=== PATIENT | female | born 1960 | race Caucasian/White ===

== ENCOUNTER 2017-12-06 20:34 | Emergency (ER) | payer OTHER, MEDICARE ==
--- NOTE | 2017-12-06 20:52 | PDOC ---
Rapid Medical Evaluation Chief Complaint: Carbon Monoxide Exposure Time Seen by Provider: 12/06/17 20:48 Medical Evaluation: 12/06/17 20:48 57 year old reports carbon monoxide exposure from slow gas leak at home. reports headache, lightheaded and shortness of breath. PE: patient alert playful. PMHX; diabetes, stents. copd. a; CARBON MONOXIDE EXPOSURE p: LABS PATIENT TO THE ER FOR FURTHER MANAGEMENT O f care. Discharge Disposition - Diagnosis Carbon monoxide exposure - Referrals - Patient Instructions - Post Discharge Activity
[2017-12-06 20:54] VITALS: BP 104/65; TEMP 98.5; BMI 41.5
[2017-12-06 21:51] LABS: BASO % 0.4 % (0-2.0); EOS % 0.1 % (0-4.5); HEMATOCRIT 43.1 % (32.4-45.2); HEMOGLOBIN 13.9 GM/dL (10.7-15.3); LYMPH % 8.9 % (8-40); MCH 27.8 pg (25.7-33.7); MCHC 32.2 g/dl (32.0-36.0); MEAN CELL VOLUME 86.3 fl (80-96); MEAN PLT VOLUME 8.9 fl (7.5-11.1); NEUT % 85.6 % (42.8-82.8); PLATELET COUNT 219 K/MM3 (134-434); RDW 15.6 % (11.6-15.6); WHITE BLOOD COUNT 15.5 K/mm3 (4.0-10.0)
[2017-12-06 22:05] LABS: INR 0.96 (0.83-1.09)
[2017-12-06 22:18] LABS: ALBUMIN 3.2 g/dl (3.4-5.0); ANION GAP 10 (8-16); BLOOD UREA NITROGEN 20 mg/dL (7-18); CALCIUM 8.7 mg/dL (8.5-10.1); CHLORIDE 103 mmol/L (98-107); CO2 29 mmol/L (21-32); MAGNESIUM 2.1 mg/dL (1.8-2.4); POTASSIUM 4.5 mmol/L (3.5-5.1); SGOT/AST 14 U/L (15-37); SGPT/ALT 39 U/L (12-78); SODIUM 142 mmol/L (136-145)
[2017-12-06 22:22] LABS: ALK PHOS 73 U/L (45-117); BILIRUBIN,TOTAL 0.2 mg/dL (0.2-1.0); N-TERMINAL BNP 47.91 pg/ml (5-125); TOT PROT 6.4 g/dl (6.4-8.2)
[2017-12-06 22:24] LABS: GLUCOSE,RANDOM 356 mg/dL (74-106)
[2017-12-06 22:33] LABS: ARTERIAL BLD GAS O2 SATURATION 96.8 % (90-98.9); ARTERIAL BLOOD GAS PO2 89.3 mmHg (80-100); ARTERIAL BLOOD GAS pH 7.42 (7.35-7.45); CARBOXYHEMOGLOBIN 1.7 gm% (0.5-2.0)
[2017-12-06 22:35] LABS: ALLENS TEST POSITIVE
[2017-12-06 22:35] LABS: PROTHROMBIN TIME (PATIENT) 10.9 SEC (9.7-13.0)
[2017-12-06] MEDS ORDERED: SODIUM CHLORIDE 0.9% 1000 ML INFUS.BAG IV ONE (22:57)
[2017-12-06 23:14] LABS: ANISOCYTOSIS 1+; MACROCYTOSIS 1+
[2017-12-06 23:15] LABS: PLATELET ESTIMATE ADEQUATE
--- NOTE | 2017-12-06 23:19 | PDOC ---
History of Present Illness <Yolanda Torres - Last Filed: 12/06/17 23:38> - General History Source: Patient Exam Limitations: No Limitations - History of Present Illness Initial Comments: 12/07/17 01:55 The patient is a 57-year-old female, with a past medical history of COPD and diabetes, who presents to the ED for possible CO exposure. The patient was recently discharged from [facility] for COPD exacerbation. Patient was discharged on steroids. Cough improved after medication. She also reports that she quit smoking 2 weeks ago and is now on Chantix. Patient finished her course of Levaquin yesterday. The patient denies any fever, chills, nausea, vomiting, diarrhea, or abdominal pain. She denies any chest pain or palpitations. Allergies: NKA <Piedad Vanegas - Last Filed: 12/07/17 01:59> - General Chief Complaint: Carbon Monoxide Exposure Stated Complaint: R/O CARBON MONOXIDE EXPOSURE Time Seen by Provider: 12/06/17 20:48 Past History - Past Medical History COPD: No Diabetes: Yes - Surgical History Cardiac Surgery: Yes (4 stents) - Suicide/Smoking/Psychosocial Hx Smoking History: Former smoker Have you smoked in the past 12 months: No Information on smoking cessation initiated: No Hx Alcohol Use: No Drug/Substance Use Hx: No Substance Use Type: None <Yolanda Torres - Last Filed: 12/06/17 23:38> <Piedad Vanegas - Last Filed: 12/07/17 01:59> - Past Medical History Allergies/Adverse Reactions: Allergies Allergy/AdvReac Type Severity Reaction Status Date / Time No Known Allergies Allergy Verified 12/06/17 20:51 Review of Systems - Review of Systems Able to Perform ROS?: Yes Comments:: 12/07/17 01:56 GENERAL/CONSTITUTIONAL: No fever or chills. No weakness. HEAD, EYES, EARS, NOSE AND THROAT: No change in vision. No ear pain or discharge. No sore throat. CARDIOVASCULAR: (+)Shortness of breath. No chest pain. RESPIRATORY: No cough, wheezing, or hemoptysis. GASTROINTESTINAL: No nausea, vomiting, diarrhea or constipation. GENITOURINARY: No dysuria, frequency, or change in urination. MUSCULOSKELETAL: No joint or muscle swelling or pain. No neck or back pain. SKIN: No rash NEUROLOGIC: No headache, vertigo, loss of consciousness, or change in strength/ sensation. ENDOCRINE: No increased thirst. No abnormal weight change. HEMATOLOGIC/LYMPHATIC: No anemia, easy bleeding, or history of blood clots. ALLERGIC/IMMUNOLOGIC: No hives or skin allergy. <GuilhermePiedad - Last Filed: 12/07/17 01:59> *Physical Exam - Vital Signs Last Vital Signs Temp Pulse Resp BP Pulse Ox 98.5 F 81 20 104/65 95 12/06/17 20:51 12/06/17 20:51 12/06/17 20:51 12/06/17 20:51 12/06/17 20:51 <Yolanda Torres - Last Filed: 12/06/17 23:38> - Vital Signs Last Vital Signs Temp Pulse Resp BP Pulse Ox 98.5 F 83 18 104/65 97 12/06/17 20:51 12/07/17 00:10 12/07/17 00:10 12/06/17 20:51 12/07/17 00:10 - Physical Exam Comments: 12/07/17 01:57 GENERAL: (+)Obese. Awake, alert, and fully oriented, in no acute distress HEAD: No signs of trauma EYES: PERRLA, EOMI, sclera anicteric, conjunctiva clear ENT: Auricles normal inspection, hearing grossly normal, nares patent, oropharynx clear without exudates. Moist mucosa NECK: Normal ROM, supple, no lymphadenopathy, JVD, or masses LUNGS: Breath sounds equal, clear to auscultation bilaterally. No wheezes, and no crackles HEART: Regular rate and rhythm, normal S1 and S2, no murmurs, rubs or gallops ABDOMEN: Soft, nontender, normoactive bowel sounds. No guarding, no rebound. No masses EXTREMITIES: Normal range of motion, no edema. No clubbing or cyanosis. No cords, erythema, or tenderness NEUROLOGICAL: Cranial nerves II through XII grossly intact. SKIN: Warm, Dry, normal turgor, no rashes or lesions noted. <Piedad Vanegas - Last Filed: 12/07/17 01:59> Heart Score/ECG Review - ECG Intrepretation Comment:: 12/06/17 23:38 sinus at 64, nl axis, nl interval, no acute st/t wave findings <Yolanda Torres - Last Filed: 12/06/17 23:38> ED Treatment Course - LABORATORY CBC & Chemistry Diagram: 12/06/17 21:40 12/06/17 21:40 - ADDITIONAL ORDERS Additional order review: Laboratory Results 12/06/17 12/06/17 12/06/17 21:55 21:40 21:40 PT with INR 10.90 INR 0.96 Puncture Site Right radial ABG pH 7.42 ABG pCO2 at Pt Temp 39.0 ABG pO2 at Pt Temp 89.3 ABG HCO3 24.9 ABG O2 Sat (Measured) 96.8 ABG O2 Content 21.1 ABG Base Excess 1.0 Raymond Test Positive Carboxyhemoglobin 1.7 Methemoglobin 1.6 H O2 Delivery Device N/c Oxygen Flow Rate 2l Sodium 142 Potassium 4.5 Chloride 103 Carbon Dioxide 29 Anion Gap 10 BUN 20 H Creatinine 1.0 Creat Clearance w eGFR 56.95 Random Glucose 356 H* Calcium 8.7 Magnesium 2.1 Total Bilirubin 0.2 AST 14 L ALT 39 Alkaline Phosphatase 73 Troponin I < 0.02 B-Natriuretic Peptide 47.91 Total Protein 6.4 Albumin 3.2 L 12/06/17 21:40 RBC 5.00 MCV 86.3 MCHC 32.2 RDW 15.6 MPV 8.9 Neutrophils % 85.6 H Lymphocytes % 8.9 Monocytes % 5.0 Eosinophils % 0.1 Basophils % 0.4 <Yolanda Torres - Last Filed: 12/06/17 23:38> - LABORATORY CBC & Chemistry Diagram: 12/06/17 21:40 12/06/17 21:40 - ADDITIONAL ORDERS Additional order review: Laboratory Results 12/06/17 12/06/17 12/06/17 21:55 21:40 21:40 PT with INR 10.90 INR 0.96 Puncture Site Right radial ABG pH 7.42 ABG pCO2 at Pt Temp 39.0 ABG pO2 at Pt Temp 89.3 ABG HCO3 24.9 ABG O2 Sat (Measured) 96.8 ABG O2 Content 21.1 ABG Base Excess 1.0 Raymond Test Positive Carboxyhemoglobin 1.7 Methemoglobin 1.6 H O2 Delivery Device N/c Oxygen Flow Rate 2l Sodium 142 Potassium 4.5 Chloride 103 Carbon Dioxide 29 Anion Gap 10 BUN 20 H Creatinine 1.0 Creat Clearance w eGFR 56.95 Random Glucose 356 H* Calcium 8.7 Magnesium 2.1 Total Bilirubin 0.2 AST 14 L ALT 39 Alkaline Phosphatase 73 Troponin I < 0.02 B-Natriuretic Peptide 47.91 Total Protein 6.4 Albumin 3.2 L 12/06/17 21:40 RBC 5.00 MCV 86.3 MCHC 32.2 RDW 15.6 MPV 8.9 Neutrophils % 85.6 H Lymphocytes % 8.9 Monocytes % 5.0 Eosinophils % 0.1 Basophils % 0.4 <Piedad Vanegas - Last Filed: 12/07/17 01:59> Medical Decision Making - Medical Decision Making 12/06/17 23:17 a/p: 57yo female with hx of copd -recently d/c from [facility] for a copd exacerbation -states always has an elevated wbc -still on steroids -denies cp/sob. states she had olivares, which have resolved -denies abd pain. no n/v/d -no complaitns at this time -states she feels anxious that her whole fam was exposed -denies wheezing, finished levaquin yesterday -will obtain labs, ekg, cxr -will monitor and reassess 12/06/17 23:19 cxr clear lungs cta pending ekg - if stable pt is stable for d/c to home <Yolanda Torres - Last Filed: 12/06/17 23:38> *DC/Admit/Observation/Transfer - Discharge Dispostion Decision to Admit order: No - Attestations Physician Attestion: 12/06/17 23:19 I, Dr. Yolanda Torres DO, attest that this document has been prepared under my direction and personally reviewed by me in its entirety. I further attest, that it accurately reflects all work, treatment, procedures and medical decision -making performed by me. <Yolanda Torres - Last Filed: 12/06/17 23:38> - Attestations Scribe Attestion: 12/07/17 01:59 Documentation prepared by Piedad Vanegas, acting as medical director/head team physician for Yolanda Torres DO. <Piedad Vanegas - Last Filed: 12/07/17 01:59> Diagnosis at time of Disposition: Carbon monoxide exposure - Discharge Dispostion Disposition: HOME Condition at time of disposition: Stable - Referrals Referrals: Hilario Eldridge MD [Staff Physician] - Melvin Love MD [Staff Physician] - - Patient Instructions Printed Discharge Instructions: Carbon Monoxide Poisoning Additional Instructions: Please take all medications as prescribed. Please return to the ED with any further concerns or complaints. 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
[2017-12-07 00:11] VITALS: PULSE 83
--- NOTE | 2017-12-07 15:46 | EKG ---
Test Reason : Blood Pressure : / mmHG Vent. Rate : 064 BPM Atrial Rate : 064 BPM P-R Int : 148 ms QRS Dur : 082 ms QT Int : 396 ms P-R-T Axes : 060 047 076 degrees QTc Int : 408 ms NORMAL SINUS RHYTHM NORMAL ECG NO PREVIOUS ECGS AVAILABLE Confirmed by NICOLE REVELES MD ([id number]) on 12/07/2017 3:46:00 PM Referred By: Confirmed By:NICOLE REVELES MD
== END 2017-12-07 00:12 | disposition home or self-care (01) ==
LOC: JER 20:34
DX: Z77.29 Contact with and (suspected) exposure to other hazardous substances (principal)
CPT/HCPCS: 36415; 36600; 71046-TC-FY; 80053; 82375; 82803; 83050; 83735; 83880; 84484; 85025; 85610; 93005; 93010; 99283-25